=== PATIENT | female | born 1985 | race American Indian/Alaskan Native ===

== ENCOUNTER 2019-06-14 02:25 | Emergency (ER) | payer MEDICAID ==
[2019-06-14] MEDS ORDERED: FLEXERIL PO ONE (02:55)
[2019-06-14] MEDS ORDERED: IBUPROFEN PO ONE (02:55)
[2019-06-14] MEDS ORDERED: BOOSTRIX IM ONE (02:55)
[2019-06-14] MEDS ORDERED: TYLENOL PO ONE (02:55)
[2019-06-14] MEDS ORDERED: XYLOCAINE 1% MPF 5 mL INFILTRATI ONE (02:55)
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
[2019-06-14 04:50] VITALS: BP 119/82
== END 2019-06-14 04:50 | disposition home or self-care (01) ==
LOC: ED 02:25
DX: S01.81XA Laceration without foreign body of other part of head, initial encounter (principal); S51.812A Laceration without foreign body of left forearm, initial encounter; S61.210A Laceration without foreign body of right index finger without damage to nail, initial encounter; F17.200 Nicotine dependence, unspecified, uncomplicated; F12.10 Cannabis abuse, uncomplicated; Y04.0XXA Assault by unarmed brawl or fight, initial encounter; Y93.89 Activity, other specified; Y92.009 Unspecified place in unspecified non-institutional (private) residence as the place of occurrence of the external cause; Y99.8 Other external cause status
CPT/HCPCS: 90471; 90715

== ENCOUNTER 2020-06-11 14:20 | Inpatient (IN) | payer OTHER, SELFPAY ==
[2020-06-11 15:53] LABS: Hematocrit 33.7 % (30.3-42.9); Hemoglobin 11.5 gm/dl (10.1-14.3); Mean Corpuscular HGB Conc 34 % (30-34); Mean Corpuscular Volume 89 fl (79-97); Platelet Count 363 K/mm3 (140-440); Red Blood Count 3.81 M/mm3 (3.65-5.03); Red Cell Distribution Width 14.5 % (13.2-15.2)
[2020-06-11 16:08] LABS: Alanine Aminotransferase 28 units/L (7-56); Albumin 3.8 g/dL (3.9-5); BUN/Creatinine Ratio 6; Blood Urea Nitrogen 5 mg/dL (7-17); Calcium 9.3 mg/dL (8.4-10.2); Hemolysis Index 2
[2020-06-11 17:11] LABS: Basophils % (Manual) 0 % (0.0-1.8); Eosinophils % (Manual) 0 % (0.0-4.3); RBC Morphology Normal; Total Cells Counted 100
[2020-06-11] MEDS ORDERED: MORPHINE 4 MG/1 ML INJ IV ONE (20:00)
[2020-06-11] MEDS ORDERED: SODIUM CHLORIDE 0.9% 1000 ML 1,000 ML IV ONE (20:00)
[2020-06-11] MEDS ORDERED: ONDANSETRON 4 MG/2 ML INJ IV ONE (20:00)
[2020-06-11 20:42] LABS: Bacteria,Urine 1+ /HPF (Negative); Bilirubin,Urine NEG (Negative); Blood,Urine LG (Negative); Color,Urine Yellow (Yellow); Mucus,Urine 2+ /HPF; Urobilinogen,Urine < 2.0 mg/dL (<2.0)
[2020-06-11] MEDS ORDERED: cefTRIAXone/NS 1 GM/50 ML 1 GM/50 ML BAG IV ONE (21:23)
--- NOTE | 2020-06-11 22:29 | Cat Scan Report ---
CT ABDOMEN AND PELVIS WITH CONTRAST INDICATION / CLINICAL INFORMATION: Abdominal pain. TECHNIQUE: Axial CT images were obtained through the abdomen and pelvis following the administration of intraven ous contrast. All CT scans at this location are performed using CT dose reduction for ALARA by means of automated exposure control. COMPARISON: None available. FINDINGS: LOWER CHEST: No significant abnormality. LIVER: No significant abnormality. GALLBLADDER: No significant abnormality. PANCREAS: No significant abnormality. SPLEEN: No significant abnormality. ADRENALS: No significant abnormality. KIDNEYS / URETERS: No significant abnormality. URINARY BLADDER: No significant abnormality. REPRODUCTIVE ORGANS: Large tubular fluid-filled structures are seen on either side of the uterus. Fin dings are concerning for tubo-ovarian abscess or possible cystic ovarian lesions. STOMACH / SMALL BOWEL: No significant abnormality. COLON: Scattered colonic diverticulosis with questionable mild inflammatory change involving the prox imal sigmoid colon. APPENDIX: No significant abnormality. PERITONEUM: No free fluid. No free air. No fluid collection. LYMPH NODES: Multiple prominent para-aortic lymph nodes are seen, the largest on the left measuring 9 mm in short axis and 1.3 cm in short axis on the right. AORTA / ARTERIES: No significant abnormality. IVC / VEINS: No significant abnormality. SKELETAL SYSTEM: No significant abnormality. ADDITIONAL FINDINGS: None. IMPRESSION: 1. Large tubular fluid-filled structures within the pelvis are concerning for either tubo-ovarian abs cess or cystic ovarian lesions. Pelvic ultrasound is recommended for further evaluation. Gynecologic evaluation is recommended. 2. Colonic diverticulosis with questionable mild inflammatory change involving the proximal sigmoid c olon. No perforation or abscess formation. 3. Prominent para-aortic lymph nodes. Signer Name: Walt Alvarez MD Signed: 06/11/2020 10:24 PM Workstation Name: [id number]
[2020-06-11] MEDS ORDERED: POTASSIUM CHLORIDE ER 20 MEQ TAB PO ONE (22:40)
[2020-06-11] MEDS ORDERED: AZITHROMYCIN 250 MG TAB PO ONE (22:40)
--- NOTE | 2020-06-12 00:03 | Ultrasound Report ---
US pelvic complete, US OB transvaginal INDICATION / CLINICAL INFORMATION: Pelvic pain: r/o Tubovarian abscess vs ovarian cys. COMPARISON: CT earlier the same day. FINDINGS: Transabdominal and transvaginal imaging was performed. Uterus measures 9.7 x 4.3 x 4.3 cm. The endometrial echo complex measures 6 mm. There is no intrauter ine gestational sac. No uterine lesions are seen. There are multiple complex cystic/tubular structures which appear to involve both adnexa. No flow is seen within these. Flow is seen to both ovaries. IMPRESSION: 1. No sonographic evidence of intrauterine . 2. No sonographic evidence of ovarian torsion. 3. Complex cystic/tubular structures involving both adnexa. This is concerning for bilateral hydrosal pinx. I cannot exclude infection. Tubo-ovarian abscesses should be considered. Signer Name: Kike Koenig MD Signed: 06/11/2020 11:59 PM Workstation Name: [id number]
[2020-06-12] MEDS ORDERED: levoFLOXacin 500 MG TAB PO ONE (00:34)
[2020-06-12] MEDS ORDERED: MORPHINE 4 MG/1 ML INJ IV ONE (00:34)
[2020-06-12] MEDS ORDERED: metroNIDAZOLE/NS 500 MG/100 ML 500 MG/100 ML BAG IV ONE (00:34)
[2020-06-12] MEDS ORDERED: ONDANSETRON 4 MG/2 ML INJ IV ONE (00:34)
[2020-06-12] MEDS ORDERED: ACETAMINOPHEN 500 MG TAB PO ONE (02:55)
[2020-06-12] MEDS ORDERED: SODIUM CHLORIDE 0.9% 1000 ML 1,000 ML IV ONE (02:55)
--- NOTE | 2020-06-12 03:05 | Emergency Department Report ---
ED Abdominal Pain HPI - General Chief Complaint: Abdominal Pain Stated Complaint: WEAK/NOT EATING Source: patient Mode of arrival: Ambulatory Limitations: No Limitations - History of Present Illness Initial Comments: Patient is a A0 35-year-old -[place] female with no past medical history presents to the ED with complaint of acute onset persistent severe diffuse low abdominal pain with nausea and vomiting for the last 5 days. Patient also complains of generalized weakness and lack of appetite as well as subjective fever and chills and low back pain. Patient states that she just returned from a trip in [place] where she had gone to celebrate her birthday about 7 days ago. Patient also states that she was diagnosed with chlamydia about 2 months ago and got treated for the same and has not had any other symptoms since that treatment. Patient also states that no one else at home is had similar symptoms. Patient denies dizziness, syncope, chest pain, shortness of breath, cough, change in vision, diarrhea, dysuria, vaginal discharge, traumatic injury, headache or heavy lifting. MD Complaint: abdominal pain, other (nausea, vomiting, generalized weakness; lack of appetite) -: Sudden, days(s) (5) Location: suprapubic Radiation: suprapubic, back (lower) Migration to: no migration Severity scale (0 -10): 8 Quality: cramping, aching, sharp Consistency: constant Improves With: nothing Worsens With: vomiting, movement Associated Symptoms: denies other symptoms, nausea, vomiting, anorexia. denies: diarrhea, fever, chills, constipation, dysuria, hematemesis, hematochezia, me lona, syncope, other - Related Data LMP Date: 06/10/20 Previous Rx's Medication Instructions Recorded Last Taken Type Acetaminophen/Codeine [Tylenol 1 tab PO Q6H PRN #12 tab 06/14/19 Unknown Rx /Codeine # 3 tab] Ibuprofen [Motrin] 800 mg PO Q8HR PRN #20 tablet 06/14/19 Unknown Rx cephALEXin [Keflex] 500 mg PO Q8HR #30 cap 06/14/19 Unknown Rx Allergies Allergy/AdvReac Type Severity Reaction Status Date / Time No Known Allergies Allergy Verified 06/14/19 03:14 ED Review of Systems ROS: Stated complaint: WEAK/NOT EATING Other details as noted in HPI Constitutional: chills, fever, malaise, weakness Eyes: denies: eye pain, eye discharge, vision change ENT: denies: ear pain, throat pain Respiratory: denies: cough, shortness of breath, wheezing Cardiovascular: denies: chest pain, palpitations Endocrine: no symptoms reported Gastrointestinal: abdominal pain (Suprapubic pain), nausea, vomiting. denies: diarrhea Genitourinary: denies: urgency, dysuria, discharge Musculoskeletal: back pain (Low back pain), arthralgia, myalgia. denies: joint swelling Skin: denies: rash, lesions Neurological: denies: headache, weakness, paresthesias Psychiatric: denies: anxiety, depression Hematological/Lymphatic: denies: easy bleeding, easy bruising ED Past Medical Hx - Past Medical History Previous Medical History?: No - Surgical History Past Surgical History?: Yes Additional Surgical History: C-Sec - Social History Smoking Status: Current Every Day Smoker Substance Use Type: Alcohol, Marijuana - Medications Home Medications: Home Medications Medication Instructions Recorded Confirmed Last Taken Type Acetaminophen/Codeine [Tylenol 1 tab PO Q6H PRN #12 tab 06/14/19 Unknown Rx /Codeine # 3 tab] Ibuprofen [Motrin] 800 mg PO Q8HR PRN #20 tablet 06/14/19 Unknown Rx cephALEXin [Keflex] 500 mg PO Q8HR #30 cap 06/14/19 Unknown Rx ED Physical Exam - General Limitations: No Limitations General appearance: alert, in no apparent distress - Head Head exam: Present: atraumatic, normocephalic, normal inspection - Eye Eye exam: Present: normal appearance, PERRL, EOMI Pupils: Present: normal accommodation - ENT ENT exam: Present: normal exam, normal orophraynx, mucous membranes moist, TM's normal bilaterally, normal external ear exam - Neck Neck exam: Present: normal inspection, full ROM - Respiratory Respiratory exam: Present: normal lung sounds bilaterally. Absent: respiratory distress, wheezes, rhonchi, stridor, chest wall tenderness, accessory muscle use, decreased breath sounds - Cardiovascular Cardiovascular Exam: Present: normal rhythm, tachycardia, normal heart sounds. Absent: systolic murmur, diastolic murmur, rubs, gallop - GI/Abdominal GI/Abdominal exam: Present: soft, tenderness (Palpable diffuse rebound lower abdominal tenderness with guarding ), guarding, rebound, normal bowel sounds. Absent: rigid, hyperactive bowel sounds, hypoactive bowel sounds, mass, pulsatile mass, hernia - External exam: Present: normal external exam, bleeding Speculum exam: Present: vaginal bleeding Bi-manual exam: Present: cervical motion tendernes, adnexal tenderness (Bilateral), uterine tenderness, other (Pelvic exam performed in the presence of female ER electronic development technician Kristine Elvira.) - Extremities Exam Extremities exam: Present: normal inspection, full ROM, normal capillary refill. Absent: pedal edema, joint swelling - Back Exam Back exam: Present: normal inspection, full ROM, tenderness (Palpable lumbosacral paraspinal musculoskeletal tenderness), muscle spasm, paraspinal tenderness - Neurological Exam Neurological exam: Present: alert, oriented X3, CN II-XII intact, normal gait, reflexes normal - Psychiatric Psychiatric exam: Present: normal affect, normal mood - Skin Skin exam: Present: warm, dry, intact, normal color. Absent: rash ED Course Vital Signs 06/11/20 06/12/20 15:28 03:49 Temperature 100.1 F H 99.2 F Pulse Rate 120 H 109 H Respiratory 18 18 Rate Blood Pressure 114/73 Blood Pressure 119/76 [Left] O2 Sat by Pulse 100 98 Oximetry - Reevaluation(s) Reevaluation #1: 06/12/20 03:04 I paged and discussed the patient's case with the CAREER GUIDANCE COUNSELOR physician bloom conveyor operator Dr. Lilliam Mcwilliams who admit the patient to the hospital. Dr. Lee to come to the ED to evaluate the patient in the ED room 35. ED Medical Decision Making - Lab Data Result diagrams: 06/11/20 15:34 06/11/20 15:34 - Radiology Data Radiology results: report reviewed, image reviewed Findings [facility] [address] [place] [address] Ultrasound Report Signed Patient: FANNY MCDONNELL MR#: [id number] : 1985 Acct:[id number] Age/Sex: 35 / F ADM Date: 06/11/20 Loc: ED Attending Dr: Ordering Physician: DELON BERG Date of Service: 06/11/20 Procedure(s): US OB transvaginal Accession Number(s): [id number] cc: DELON BERG US pelvic complete, US OB transvaginal INDICATION / CLINICAL INFORMATION: Pelvic pain: r/o Tubovarian abscess vs ovarian cys. COMPARISON: CT earlier the same day. FINDINGS: Transabdominal and transvaginal imaging was performed. Uterus measures 9.7 x 4.3 x 4.3 cm. The endometrial echo complex measures 6 mm. There is no intrauterine gestational sac. No uterine lesions are seen. There are multiple complex cystic/tubular structures which appear to involve both adnexa. No flow is seen within these. Flow is seen to both ovaries. IMPRESSION: 1. No sonographic evidence of intrauterine . 2. No sonographic evidence of ovarian torsion. 3. Complex cystic/tubular structures involving both adnexa. This is concerning for bilateral hydrosalpinx. I cannot exclude infection. Tubo-ovarian abscesses should be considered. Signer Name: Kike Koenig MD Signed: 06/11/2020 11:59 PM Workstation Name: [id number] Transcribed By: QUENTIN Dictated By: Kike Koenig MD Electronically Authenticated By: Kike Koenig MD Signed Date/Time: 06/11/202358 DD/ 54 TD/TT: Findings [facility] [address] [place] [address] Ultrasound Report Signed Patient: FANNY MCDONNELL MR#: [id number] : 1985 Acct:[id number] Age/Sex: 35 / F ADM Date: 06/11/20 Loc: ED Attending Dr: Ordering Physician: DELON BERG Date of Service: 06/11/20 Procedure(s): US pelvic complete Accession Number(s): [id number] cc: DELON BERG US pelvic complete, US OB transvaginal INDICATION / CLINICAL INFORMATION: Pelvic pain: r/o Tubovarian abscess vs ovarian cys. COMPARISON: CT earlier the same day. FINDINGS: Transabdominal and transvaginal imaging was performed. Uterus measures 9.7 x 4.3 x 4.3 cm. The endometrial echo complex measures 6 mm. There is no intrauterine gestational sac. No uterine lesions are seen. There are multiple complex cystic/tubular structures which appear to involve bot h adnexa. No flow is seen within these. Flow is seen to both ovaries. IMPRESSION: 1. No sonographic evidence of intrauterine . 2. No sonographic evidence of ovarian torsion. 3. Complex cystic/tubular structures involving both adnexa. This is concerning for bilateral hydrosalpinx. I cannot exclude infection. Tubo-ovarian abscesses should be considered. Signer Name: Kike Koenig MD Signed: 06/11/2020 11:59 PM Workstation Name: [id number] Transcribed By: QUENTIN Dictated By: Kike Koenig MD Electronically Authenticated By: Kike Koenig MD Signed Date/Time: 06/11/202358 DD/ 54 TD/TT: ------- Findings [facility] [address] [place] [address] Cat Scan Report Signed Patient: FANNY MCDONNELL MR#: [id number] : 1985 Acct:[id number] Age/Sex: 35 / F ADM Date: 06/11/20 Loc: ED Attending Dr: Ordering Physician: DELON BERG Date of Service: 06/11/20 Procedure(s): CT abdomen pelvis w con Accession Number(s): [id number] cc: DELON BERG CT ABDOMEN AND PELVIS WITH CONTRAST INDICATION / CLINICAL INFORMATION: Abdominal pain. TECHNIQUE: Axial CT images were obtained through the abdomen and pelvis following the administration of intravenous contrast. All CT scans at this location are performed using CT dose reduction for ALARA by means of automated exposure control. COMPARISON: None available. FINDINGS: LOWER CHEST: No significant abnormality. LIVER: No significant abnormality. GALLBLADDER: No significant abnormality. PANCREAS: No significant abnormality. SPLEEN: No significant abnormality. ADRENALS: No significant abnormality. KIDNEYS / URETERS: No significant abnormality. URINARY BLADDER: No significant abnormality. REPRODUCTIVE ORGANS: Large tubular fluid-filled structures are seen on either side of the uterus. Findings are concerning for tubo-ovarian abscess or possible cystic ovarian lesions. STOMACH / SMALL BOWEL: No significant abnormality. COLON: Scattered colonic diverticulosis with questionable mild inflammatory change involving the proximal sigmoid colon. APPENDIX: No significant abnormality. PERITONEUM: No free fluid. No free air. No fluid collection. LYMPH NODES: Multiple prominent para-aortic lymph nodes are seen, the largest on the left measuring 9 mm in short axis and 1.3 cm in short axis on the right. AORTA / ARTERIES: No significant abnormality. IVC / VEINS: No significant abnormality. SKELETAL SYSTEM: No significant abnormality. ADDITIONAL FINDINGS: None. IMPRESSION: 1. Large tubular fluid-filled structures within the pelvis are concerning for either tubo-ovarian abscess or cystic ovarian lesions. Pelvic ultrasound is recommended for further evaluation. Gynecologic evaluation is recommended. 2. Colonic diverticulosis with questionable mild inflammatory change involving the proximal sigmoid colon. No perforation or abscess formation. 3. Prominent para-aortic lymph nodes. Signer Name: Man Alvarez MD Signed: 06/11/2020 10:24 PM Workstation Name: [id number] Transcribed By: SS Dictated By: MAN ALVAREZ Electronically Authenticated By: MAN ALVARZE Signed Date/Time: 06/11/202223 DD/ 15 TD/TT: - Medical Decision Making This is a A0 35-year-old -[place] female with no past medical history presents to the ED with complaint of acute onset persistent severe diffuse low abdominal pain with nausea and vomiting for the last 5 days. Patient also complains of generalized weakness and lack of appetite as well as subjective fever and chills and low back pain. Patient states that she just returned from a trip in [place] where she had gone to celebrate her birthday about 7 days ago. Patient also states that she was diagnosed with chlamydia about 2 months ago and got treated for the same and has not had any other symptoms since that treatment. Patient also states that no one else at home is had similar symptoms. In the ED, patient is alert and oriented x3 and is not in distress but appears to be in significant pain, is febrile and tachycardic in triage. Lab test results were reviewed and showed acute leukocytosis of 21,900, mild hyponatremia 135 mmol/L and mild hypokalemia of 3.2 mmol/L, and urinalysis shows urinary tract infection. Patient was treated for pain in the ED and also treated for nausea and vomiting as well as fever. Abdomen pelvis CT scan with contrast showed a large tubular fluid-filled structures within the pelvis are concerning for either tubo-ovarian abscess or cystic ovarian lesions. Pelvic ultrasound is recommended for further evaluation. Gynecologic evaluation is recommended. It also showed colonic diverticulosis with questionable mild inflammatory change involving the proximal sigmoid colon. No perforation or abscess formation; and also a prominent para-aortic lymph nodes. Transvaginal ultrasound showed no sonographic evidence of intrauterine or evidence of ovarian torsion. It however showed a complex cystic/tubular structures involving both adnexa. This is concerning for bilateral hydrosalpinx. I cannot exclude infection. Tubo-ovarian abscesses should be considered. Patient was treated with antibiotics in the ED including Flagyl, Rocephin and Levaquin. On reevaluation, patient pain is well controlled medication. I therefore paged and discussed the patient's case with the CAREER GUIDANCE COUNSELOR physician bloom conveyor operator Dr. Donna Mcwilliams who agreed with the plan of care to admit the patient to the hospital. Dr. Mcwilliams also came to the ED and evaluated the patient and admitted the patient to the [facility] floor. - Differential Diagnosis PID; diverticulitis; appendicitis; ovarian cyst; uterine fibroids; UTI; Critical Care Time: Yes Critical care time in (mins) excluding proc time.: 45 Critical care attestation.: If time is entered above; I have spent that time in minutes in the direct care of this critically ill patient, excluding procedure time. ED Disposition Clinical Impression: Acute pelvic inflammatory disease (PID), Diverticulitis large intestine w/o perforation or abscess w/o bleeding, Nausea and vomiting in adult, Fever and chills, Acute urinary tract infection, Acute bilateral lower abdominal pain Disposition: -09 OP ADMIT IP TO THIS HOSP Is pt being admited?: Yes Does the pt Need Aspirin: No Condition: Stable Time of Disposition: 03:11
--- NOTE | 2020-06-12 06:02 | History and Physical Report ---
History of Present Illness Date of examination: 06/12/20 Date of admission: 06/12/20 05:22 History of present illness: This is a 35-year-old female 1 para 1 who presented with a one-week history of pelvic pain that started on June 07, 2020. Patient states pain was somewhat relieved with Gas-X and an enema however she developed nausea and vomiting yesterday with weakness and fatigue and anorexia. LMP 05/22/2020 however she states she then bled again 06/07/2020 that coincided with the beginning of her pain. She states she had sex approximately 2 weeks ago. Patient gives a history of positive chlamydia in February 2020 for she and her partner were treated. She did not get a test of cure. ED evaluation revealed bilateral adnexal complex cystic structures possibly consistent with tubo- ovarian abscesses. Patient has white count 21,000 a low-grade fever of 100.1 and slight tachycardia she is admitted now for IV antibiotics and an evaluation by interventional radiology with for possible drainage. Past History Past Medical History: No medical history Past Surgical History: Other (oral) Medications and Allergies Allergies Allergy/AdvReac Type Severity Reaction Status Date / Time No Known Allergies Allergy Verified 06/14/19 03:14 Home Medications Medication Instructions Recorded Confirmed Last Taken Type Acetaminophen/Codeine [Tylenol 1 tab PO Q6H PRN #12 tab 06/14/19 Unknown Rx /Codeine # 3 tab] Ibuprofen [Motrin] 800 mg PO Q8HR PRN #20 tablet 06/14/19 Unknown Rx cephALEXin [Keflex] 500 mg PO Q8HR #30 cap 06/14/19 Unknown Rx Exam - Constitutional Vitals: Temp Pulse Resp BP Pulse Ox 99.2 F 109 H 18 119/76 98 06/12/20 03:49 06/12/20 03:49 06/12/20 03:49 06/12/20 03:49 06/12/20 03:49 Results - Labs CBC & Chem 7: 06/11/20 15:34 06/11/20 15:34 Labs: Abnormal lab results 06/11/20 06/11/20 06/11/20 Range/Units 15:34 15:34 Unknown WBC 21.9 H (4.5-11.0) K/mm3 Seg Neuts % (Manual) 78.0 H (40.0-70.0) % Lymphocytes % (Manual) 11.0 L (13.4-35.0) % Monocytes % (Manual) 11.0 H (0.0-7.3) % Seg Neutrophils # Man 17.1 H (1.8-7.7) K/mm3 Monocytes # (Manual) 2.4 H (0.0-0.8) K/mm3 Sodium 135 L (137-145) mmol/L Potassium 3.2 L (3.6-5.0) mmol/L Chloride 94.5 L (98-107) mmol/L BUN 5 L (7-17) mg/dL Glucose 110 H (65-100) mg/dL Albumin 3.8 L (3.9-5) g/dL Urine WBC (Auto) 16.0 H (0.0-6.0) /HPF
--- NOTE | 2020-06-12 06:07 | History and Physical Report ---
History of Present Illness Date of examination: 06/12/20 Date of admission: 06/12/20 05:22 History of present illness: This is a 35-year-old female 1 para 1 who presented with a one-week history of pelvic pain that started on June 07, 2020. Patient states pain was somewhat relieved with Gas-X and an enema however she developed nausea and vomiting yesterday with weakness and fatigue and anorexia. LMP 05/22/2020 however she states she then bled again 06/07/2020 that coincided with the beginning of her pain. She states she had sex approximately 2 weeks ago. Patient gives a history of positive chlamydia in February 2020 for she and her partner were treated. She did not get a test of cure. ED evaluation revealed bilateral adnexal complex cystic structures possibly consistent with tubo- ovarian abscesses. Patient has white count 21,000 a low-grade fever of 100.1 and slight tachycardia she is admitted now for IV antibiotics and an evaluation by interventional radiology with for possible drainage Past History Past Medical History: no pertinent history Past Surgical History: section, other (oral) CONFERENCE CENTER COORDINATOR History: chlamydia Social history: single, smoking, full code. denies: alcohol abuse, IV drug use Medications and Allergies Allergies Allergy/AdvReac Type Severity Reaction Status Date / Time No Known Allergies Allergy Verified 06/14/19 03:14 Home Medications Medication Instructions Recorded Confirmed Last Taken Type Acetaminophen/Codeine [Tylenol 1 tab PO Q6H PRN #12 tab 06/14/19 Unknown Rx /Codeine # 3 tab] Ibuprofen [Motrin] 800 mg PO Q8HR PRN #20 tablet 06/14/19 Unknown Rx cephALEXin [Keflex] 500 mg PO Q8HR #30 cap 06/14/19 Unknown Rx Review of Systems All systems: negative Gastrointestinal: abdominal pain Genitourinary: pelvic pain - Vital Signs Vital signs: Vital Signs Temp Pulse Resp BP Pulse Ox 100.1 F H 120 H 18 114/73 100 06/11/20 15:28 06/11/20 15:28 06/11/20 15:28 06/11/20 15:28 06/11/20 15:28 Temp Pulse Resp BP Pulse Ox 99.2 F 109 H 18 119/76 98 06/12/20 03:49 06/12/20 03:49 06/12/20 03:49 06/12/20 03:49 06/12/20 03:49 - Physical Exam Breasts: Positive: deferred Lungs: Positive: Normal air movement Abdomen: Positive: normal appearance, soft, distention, tenderness Genitourinary (Female): Positive: other (Patient refused pelvic exam since she previously an evaluation by the ED provider) Extremities: Positive: normal. Negative: tenderness Results Result Diagrams: 06/11/20 15:34 06/11/20 15:34 Abnormal lab results 06/11/20 06/11/20 06/11/20 Range/Units 15:34 15:34 Unknown WBC 21.9 H (4.5-11.0) K/mm3 Seg Neuts % (Manual) 78.0 H (40.0-70.0) % Lymphocytes % (Manual) 11.0 L (13.4-35.0) % Monocytes % (Manual) 11.0 H (0.0-7.3) % Seg Neutrophils # Man 17.1 H (1.8-7.7) K/mm3 Monocytes # (Manual) 2.4 H (0.0-0.8) K/mm3 Sodium 135 L (137-145) mmol/L Potassium 3.2 L (3.6-5.0) mmol/L Chloride 94.5 L (98-107) mmol/L BUN 5 L (7-17) mg/dL Glucose 110 H (65-100) mg/dL Albumin 3.8 L (3.9-5) g/dL Urine WBC (Auto) 16.0 H (0.0-6.0) /HPF All other labs normal. Ultrasound: report reviewed, image reviewed CT scan - abdomen: report reviewed CT scan - pelvis: report reviewed Assessment and Plan - Patient Problems (1) Acute pelvic inflammatory disease (PID) Current Visit: Yes Status: Acute Plan to address problem: Patient has white count 21,000 a low-grade fever of 100.1 and slight tachycardia she is admitted now for IV antibiotics and an evaluation by interventional radiology with for possible drainage (2) Pelvic mass Current Visit: Yes Status: Acute Plan to address problem: Probable tubo-ovarian abscess. (3) Diverticulosis Current Visit: Yes Status: Chronic (4) Acute bilateral lower abdominal pain Current Visit: Yes Status: Acute (5) Acute urinary tract infection Current Visit: Yes Status: Acute (6) Fever and chills Current Visit: Yes Status: Acute (7) Nausea and vomiting in adult Current Visit: Yes Status: Acute (8) Smoker Current Visit: Yes Status: Chronic
[2020-06-12] MEDS: LACTATED RINGERS 1,000 ML IV SCH (10:20)
[2020-06-12] MEDS: metroNIDAZOLE/NS 500 MG/100 ML 500 MG/100 ML BAG IV SCH ×2 (11:15→18:39)
[2020-06-12] MEDS: cefTRIAXone/NS 2 GM/100 ML 2 GM/100 ML BAG IV SCH (12:05)
[2020-06-12] MEDS ORDERED: KETOROLAC 30 MG/1 ML INJ IV ONE (12:30)
[2020-06-12] MEDS: DOXYCYCLINE HYCLATE 100 MG in SODIUM CHLORIDE 0.9% 250ML 250 ML IV SCH ×2 (13:09→23:01)
--- NOTE | 2020-06-12 13:46 | Event Note ---
Date: 06/12/20 SUBJECTIVE: Patient states pain has improved still complains some lower abdominal pain. Patient denies any nausea vomiting's complaint hunger has regular tray present OBJECTIVE: Patient vital signs stable afebrile Abdomen is soft mildly tender and no rebound ASSESSMENT: Tubo-ovarian abscess receiving IV antibiotics -Dr. Caceres reviewed the patient's films and believe she is a candidate for drainage but states there is no staff available to perform the procedure over the weekend. Discussed this finding with patient. Discussed the role of IV antibiotic treatment for her abscess and duration needed. Patient desires to continue IV antibiotics again expressed her desire not to have surgery on this is unavoidable. PLAN: 1. We will continue IV antibiotics will give analgesia. With hopeful drainage by interventional radiologist on Sunday. .
[2020-06-12 14:37] LABS: Hematocrit 29.1 % (30.3-42.9); Hemoglobin 9.5 gm/dl (10.1-14.3); Mean Corpuscular HGB Conc 33 % (30-34); Mean Corpuscular Volume 90 fl (79-97); Platelet Count 321 K/mm3 (140-440); Red Blood Count 3.24 M/mm3 (3.65-5.03); Red Cell Distribution Width 14.1 % (13.2-15.2)
[2020-06-12] MEDS: KETOROLAC 30 MG/1 ML INJ IV PRN ×2 (15:14→21:13)
[2020-06-12 16:12] LABS: Basophils % (Manual) 0 % (0.0-1.8); Eosinophils % (Manual) 0 % (0.0-4.3); RBC Morphology Normal; Total Cells Counted 100
[2020-06-12 18:27] LABS: Blood Urea Nitrogen 6 mg/dL (7-17); Calcium 8.6 mg/dL (8.4-10.2); Hemolysis Index 0
[2020-06-12 18:28] LABS: BUN/Creatinine Ratio 9
[2020-06-12] MEDS: ALUM-MAG HYDROXIDE-SIMETHICONE 200-200-20MG/5ML ORAL LIQD 30 ML PO PRN (23:00)
[2020-06-13] MEDS: metroNIDAZOLE/NS 500 MG/100 ML 500 MG/100 ML BAG IV SCH ×3 (04:07→17:33)
[2020-06-13] MEDS: KETOROLAC 30 MG/1 ML INJ IV PRN ×2 (04:08→09:36)
[2020-06-13] MEDS: cefTRIAXone/NS 2 GM/100 ML 2 GM/100 ML BAG IV SCH (09:39)
--- NOTE | 2020-06-13 10:45 | Consultation ---
History of Present Illness - Reason for Consult Consult date: 06/13/20 Tubo-ovarian abscess - History of Present Illness Patient with a history of 5 days of increasing abdominal pain ultimately developing nausea and vomiting who presented to the ER. She was found to have multiple fluid-filled cystic structures in the pelvis consistent with hydrosalpinx versus TOA. Patient has been on antibiotics since her arrival. Unable to perform drainage catheter placement over the weekend secondary to lack of CT techs. On examination, the patient is doing well, persistent lower abdominal pain. Past History Social history: single, smoking, full code. denies: alcohol abuse, IV drug use Medications and Allergies Allergies Allergy/AdvReac Type Severity Reaction Status Date / Time No Known Allergies Allergy Verified 06/14/19 03:14 Home Medications Medication Instructions Recorded Confirmed Last Taken Type Acetaminophen/Codeine [Tylenol 1 tab PO Q6H PRN #12 tab 06/14/19 Unknown Rx /Codeine # 3 tab] Ibuprofen [Motrin] 800 mg PO Q8HR PRN #20 tablet 06/14/19 Unknown Rx cephALEXin [Keflex] 500 mg PO Q8HR #30 cap 06/14/19 Unknown Rx Active Meds: Active Medications Al Hydrox/Mg Hydrox/Simethicone (Alum-Mag Hydrox-Simeth 512-798-98wv/5ml) 30 ml PO Q4H PRN PRN Reason: Indigestion Last Admin: 06/12/20 23:00 Dose: 30 ml Documented by: Lactated Ringer's (Lactated Ringers) 1,000 mls @ 42 mls/hr IV DIRECT DUONG Last Admin: 06/12/20 10:20 Dose: 42 mls/hr Documented by: Ceftriaxone Sodium (Rocephin/Ns 2 Gm/100 Ml) 2 gm in 100 mls @ 200 mls/hr IV Q24HR DUONG; Protocol Last Admin: 06/13/20 09:39 Dose: 200 mls/hr Documented by: Doxycycline Hyclate 100 mg/ (Sodium Chloride) 250 mls @ 250 mls/hr IV Q12H DUONG; Protocol Last Admin: 06/12/20 23:01 Dose: 250 mls/hr Documented by: Metronidazole (Flagyl 500 Mg/100 Ml) 500 mg in 100 mls @ 100 mls/hr IV Q8H DUONG; Protocol Last Admin: 06/13/20 04:07 Dose: 100 mls/hr Documented by: Ketorolac Tromethamine (Toradol) 30 mg IV Q6H PRN PRN Reason: Pain, Moderate (4-6) Stop: 06/17/20 13:46 Last Admin: 06/13/20 09:36 Dose: 30 mg Documented by: Review of Systems All systems: negative Exam - Constitutional Vitals: Temp Pulse Resp BP Pulse Ox 98.1 F 73 18 108/68 87 06/13/20 07:52 06/13/20 07:52 06/13/20 07:52 06/13/20 07:52 06/13/20 07:52 General appearance: Present: no acute distress - EENT Eyes: Present: EOM intact ENT: hearing intact - Neck Neck: Present: supple - Respiratory Respiratory effort: normal - Extremities Extremities: no ischemia - Rectal Rectal Exam: deferred - Psychiatric Psychiatric: appropriate mood/affect, cooperative Results - Labs CBC & Chem 7: 06/12/20 14:14 06/12/20 17:40 Labs: Abnormal lab results 06/12/20 06/12/20 Range/Units 14:14 17:40 WBC 21.6 H (4.5-11.0) K/mm3 RBC 3.24 L (3.65-5.03) M/mm3 Hgb 9.5 L (10.1-14.3) gm/dl Hct 29.1 L (30.3-42.9) % Seg Neuts % (Manual) 82.0 H (40.0-70.0) % Lymphocytes % (Manual) 8.0 L (13.4-35.0) % Monocytes % (Manual) 10.0 H (0.0-7.3) % Seg Neutrophils # Man 17.7 H (1.8-7.7) K/mm3 Monocytes # (Manual) 2.2 H (0.0-0.8) K/mm3 Potassium 3.5 L (3.6-5.0) mmol/L BUN 6 L (7-17) mg/dL Glucose 103 H (65-100) mg/dL - Imaging and Cardiology CT scan - abdomen: report reviewed, image reviewed CT scan - pelvis: report reviewed, image reviewed US - abdomen: report reviewed, image reviewed Assessment and Plan Plan for placement of drainage catheter with drainage of hydrosalpinx versus TOA Sunday morning.
[2020-06-13] MEDS: DOXYCYCLINE HYCLATE 100 MG in SODIUM CHLORIDE 0.9% 250ML 250 ML IV SCH (13:57)
[2020-06-13] MEDS ORDERED: ACETAMINOPHEN 325 MG TAB PO PRN (14:18)
--- NOTE | 2020-06-13 14:32 | Progress Note ---
Assessment and Plan - Patient Problems (1) Tubo-ovarian abscess Current Visit: Yes Status: Acute Plan to address problem: Appreciate Dr. Caceres's help. Please see his note for plan of care tomorrow. We will add oral analgesics. Patient continues to be afebrile. Hopeful discharge tomorrow if continue afebrile and with expected pain relief after d rainage of her abscess. Subjective Date of service: 06/13/20 Interval history: Patient says feels better still having pain. Patient denies any nausea vomiting Objective - Constitutional Vitals: Vital Signs - 12hr 06/13/20 06/13/20 05:13 07:52 Temperature 98.9 F 98.1 F Pulse Rate 86 73 Respiratory 20 18 Rate Blood Pressure 106/64 Blood Pressure 108/68 [Left] O2 Sat by Pulse 100 87 Oximetry General appearance: Present: no acute distress, well-nourished - Respiratory Respiratory effort: normal - Breasts Breasts: deferred - Cardiovascular Rhythm: regular Extremities: no ischemia - Gastrointestinal General gastrointestinal: Present: soft, tender (Mildly no rebound) Localized gastrointestinal: tender: suprapubic Rectal Exam: deferred - Genitourinary Female genitourinary: deferred - Integumentary Integumentary: clear, warm, dry - Neurologic Neurologic: moves all extremities - Psychiatric Psychiatric: appropriate mood/affect - Labs CBC & Chem 7: 06/12/20 14:14 06/12/20 17:40 Labs: Abnormal lab results 06/12/20 06/12/20 Range/Units 14:14 17:40 WBC 21.6 H (4.5-11.0) K/mm3 RBC 3.24 L (3.65-5.03) M/mm3 Hgb 9.5 L (10.1-14.3) gm/dl Hct 29.1 L (30.3-42.9) % Seg Neuts % (Manual) 82.0 H (40.0-70.0) % Lymphocytes % (Manual) 8.0 L (13.4-35.0) % Monocytes % (Manual) 10.0 H (0.0-7.3) % Seg Neutrophils # Man 17.7 H (1.8-7.7) K/mm3 Monocytes # (Manual) 2.2 H (0.0-0.8) K/mm3 Potassium 3.5 L (3.6-5.0) mmol/L BUN 6 L (7-17) mg/dL Glucose 103 H (65-100) mg/dL Medications & Allergies - Medications Allergies/Adverse Reactions: Allergies No Known Allergies Allergy (Verified 06/14/19 03:14) Home Medications: Home Medications Medication Instructions Recorded Confirmed Last Taken Type Acetaminophen/Codeine [Tylenol 1 tab PO Q6H PRN #12 tab 06/14/19 Unknown Rx /Codeine # 3 tab] Ibuprofen [Motrin] 800 mg PO Q8HR PRN #20 tablet 06/14/19 Unknown Rx cephALEXin [Keflex] 500 mg PO Q8HR #30 cap 06/14/19 Unknown Rx Active Medications: Generic Name Dose Route Start Last Admin Trade Name Freq PRN Reason Stop Dose Admin Acetaminophen 650 mg 06/13/20 14:18 Tylenol PO Q4H PRN Non Cardiac Pain or Temp>100.5 Acetaminophen/Codeine Phosphate 2 tab 06/13/20 14:18 Tylenol #3 PO Q6H PRN Pain, Moderate (4-6) Al Hydrox/Mg Hydrox/Simethicone 30 ml 06/12/20 22:00 06/12/20 23:00 Alum-Mag Hydrox-Simeth 385-191-58fn/5ml PO 30 ml Q4H PRN Administration Indigestion Lactated Ringer's 1,000 mls @ 42 mls/hr 06/12/20 07:00 06/12/20 10:20 Lactated Ringers IV 42 mls/hr DIRECT DUONG Administration Ceftriaxone Sodium 2 gm in 100 mls @ 200 mls/hr 06/12/20 11:00 06/13/20 09:39 Rocephin/Ns 2 Gm/100 Ml IV 200 mls/hr Q24HR DUONG Administration Protocol Doxycycline Hyclate 100 mg/ 250 mls @ 250 mls/hr 06/12/20 11:00 06/13/20 13:57 Sodium Chloride IV 250 mls/hr Q12H DUONG Administration Protocol Metronidazole 500 mg in 100 mls @ 100 mls/hr 06/12/20 11:00 06/13/20 12:24 Flagyl 500 Mg/100 Ml IV 100 mls/hr Q8H DUONG Administration Protocol Ketorolac Tromethamine 30 mg 06/12/20 13:47 06/13/20 09:36 Toradol IV 06/17/20 13:46 30 mg Q6H PRN Administration Pain, Moderate (4-6)
[2020-06-13] MEDS: ACETAMINOPHEN W/CODEINE 300-30 MG TAB PO PRN (14:44)
[2020-06-13] MEDS: LACTATED RINGERS 1,000 ML IV SCH (17:40)
[2020-06-13] MEDS: ALUM-MAG HYDROXIDE-SIMETHICONE 200-200-20MG/5ML ORAL LIQD 30 ML PO PRN (20:24)
[2020-06-14] MEDS: metroNIDAZOLE/NS 500 MG/100 ML 500 MG/100 ML BAG IV SCH ×2 (00:11→15:42)
[2020-06-14] MEDS: ACETAMINOPHEN W/CODEINE 300-30 MG TAB PO PRN ×2 (00:26→15:43)
[2020-06-14] MEDS: DOXYCYCLINE HYCLATE 100 MG in SODIUM CHLORIDE 0.9% 250ML 250 ML IV SCH ×2 (01:25→23:10)
[2020-06-14] MEDS ORDERED: fentaNYL 100 MCG/2 ML INJ IV SCH ×2 (09:00→13:00)
[2020-06-14] MEDS ORDERED: MIDAZOLAM 5 MG/5 ML INJ MDV IV SCH (09:00)
--- NOTE | 2020-06-14 09:24 | Event Note ---
Date: 06/14/20 Chart reviewed. Pt now awaiting drainage of suspected bilateral TOAs by IR. Will evaluate pt after procedure and plan for d/c home if remains stable and afebrile.
[2020-06-14] MEDS: cefTRIAXone/NS 2 GM/100 ML 2 GM/100 ML BAG IV SCH ×2 (09:42→14:20)
[2020-06-14] MEDS ORDERED: fentaNYL 100 MCG/2 ML INJ ONE ×2 (11:13→12:37)
[2020-06-14] MEDS ORDERED: MIDAZOLAM 5 MG/5 ML INJ MDV IV ONE (11:13)
--- NOTE | 2020-06-14 14:46 | Progress Note ---
Assessment and Plan - Patient Problems (1) Acute pelvic inflammatory disease (PID) Current Visit: Yes Status: Acute (2) Tubo-ovarian abscess Current Visit: Yes Status: Acute Plan to address problem: -cont antibx -s/p successful drainage with drain placement. please see Dr. Alvarez's noted for details -desires d/c home. see hpi -cont' antibx for now -d/c home when cleared by IR . Recommendation was to remain in house at least until cx are back. Subjective - Subjective Date of service: 06/14/20 Principal diagnosis: POD#0 s/p CT drainage of TOAs with drain left insitu Interval history: I d/w pt recommendations of Dr. Alvarez to remain in house until cx are back or at least another 24 hrs. Pt very upset using profanity stating she wants to leave, the food is not good, the room is hot at night(though she admits it is not hot at this time), she has had only one meal per day since admission and the feels as if she is in shelter. I addressed the profanity and asked that she not use with provider, she then stated that it was not directed towards me but towards her mother that was on the phone via face time. I d/w pt that as per IR her procedure was more difficult than anticipated and showed her the pus that was still draining in the drain. States she does not have any pain at this time and just wants to go home. I stressed that the plan of care is to remain in house at this time and that if she does leave she will need to do AMA. Pt still very upset and states she does not want to stay in the this "[facility] any more." Again I tried to addressed the concerns that Dr. Alvarez has regarding remaining in house for iv antibx and difficulty in placement of the drain. I did speak with Dr. Alvarez after leaving the pt bedside and he states he will also attempt to speak with pt regarding continued hospital stay. I prior to leaving advised pt that I would try to get her an egg crate matress for her discomfort as well as a family member is able to bring her food if she desires them to do so as she is now on a regular diet. Provider was at bedside about 15 minutes. When asked if there were any questions for the provider or how I could make her stay more comfortable , pt responded she is not going to stay and did not address the questions. Again I stressed the high rate of among AA women in the state of [place] and we are just doing our part to not allow her to be one of the statistics. Pt did not respond. Patient reports: appetite normal, voiding normally, pain well controlled, ambulating normally, no nauseated Objective - Vital Signs Latest vital signs: Vital Signs Temp Pulse Pulse Pulse Resp Resp Resp 06/14/20 14:00 99.3 F 98 H 20 06/14/20 13:19 98 H 25 H 06/14/20 13:08 99 H 27 H 06/14/20 13:03 104 H 22 06/14/20 12:58 113 H 20 06/14/20 12:52 108 H 28 H 06/14/20 12:48 101 H 24 06/14/20 12:42 120 H 18 06/14/20 12:34 117 H 16 06/14/20 12:27 101 H 24 06/14/20 12:23 107 H 24 06/14/20 12:18 114 H 18 06/14/20 12:12 97 H 28 H 06/14/20 12:01 87 20 06/14/20 07:36 99.2 F 89 20 06/14/20 04:55 98.7 F 89 20 06/14/20 01:12 99.4 F 93 H 20 06/14/20 00:26 16 06/13/20 20:30 98.4 F 90 20 06/13/20 15:52 98.7 F 81 18 BP BP BP BP Pulse Ox Pulse Ox Pulse Ox 06/14/20 14:00 115/72 100 06/14/20 13:19 128/70 97 06/14/20 13:08 114/62 98 06/14/20 13:03 110/67 97 06/14/20 12:58 121/67 97 06/14/20 12:52 110/66 98 06/14/20 12:48 113/65 97 06/14/20 12:42 126/67 100 06/14/20 12:34 119/65 99 06/14/20 12:27 113/59 98 06/14/20 12:23 115/63 96 06/14/20 12:18 118/70 100 06/14/20 12:12 116/69 99 06/14/20 12:01 122/73 100 06/14/20 07:36 117/69 100 06/14/20 04:55 98/63 100 06/14/20 01:12 116/72 100 06/14/20 00:26 06/13/20 20:30 108/73 100 06/13/20 15:52 118/75 88 Intake and Output 06/13/20 06/14/20 06/14/20 22:59 06:59 14:59 Intake Total 340 0 Balance 340 0 Intake: IV 100 FLAGYL 500 MG/100 ML 500 100 mg In 100 ml @ 100 mls/hr IV Q8H [facility] Rx#:[id number] Oral 240 0 Other: Total, Intake Amount 240 0 Voiding Method Toilet # Voids Void 1 1 1 - Exam Abdomen: Present: normal appearance, soft, other (drain in place with purlent fluid seen in the tubing). Absent: distention, tenderness, guarding Extremities: Present: normal. Absent: tenderness, edema Incision: Present: normal, dry, intact
--- NOTE | 2020-06-14 15:01 | Post Operative Note ---
Date of procedure: 06/14/20 Pre-op diagnosis: TOA Post-op diagnosis: same Findings: Very stiff pelvic collection that deflected to drains but the third drain was successfully placed. Procedure: 1. CT guided placement of an 8 Fr drain in the pelvic TOA/fluid collection Anesthesia: local (w/ conscious sedation) Surgeon: SORAIDA HOLLEY Estimated blood loss: minimal Specimen disposition: to lab Condition: stable Disposition: floor
--- NOTE | 2020-06-14 16:12 | Cat Scan Report ---
EXAM: CT guided tuboovarian abscess 8 Fr drain placement CLINICAL INDICATION: Tubo-ovarian abscess DATE: 06/14/2020 MISDRAW HAND: SORAIDA HOLLEY MD MEDICATIONS: Conscious sedation using Versed and fentanyl was performed under guidance of radiologic nursing. Continuous cardiopulmonary monitoring was utilized. PROCEDURE: Following an explanation of the risks, benefits and alternatives; written informed consent was obtained. The patient was brought to the CT suite and placed in the supine position on the CT table. Map Drafter CT was performed of the pelvis. After determining the appropriate site, the skin was infiltrated with lidocaine and a finder needle was placed. Intermittent CT was performed until the desired position was identified. The 18 gauge trocar needle was inserted into the tubo-ovarian complex . Aspiration was performed and sent to the lab for analysis. J wire was then advanced through the needle and into the collection. The needle was exchanged for multiple dilators that were used to serially dilate over the wire. An 8 Fr APD drain was advanced over the wire and metal stiffener. After this was performed, CT scan demonstrated that the drain appears to have been deflected off of the tubo-ovarian complex and pushed into the surrounding retroperitoneal space. The drain was then cut and removed. The complex was accessed again with an 18-gauge trocar needle which was inserted into the tubo-ovarian complex at a different angle, and J-wire was advanced through the needle into the collection. Multiple dilators were used to serially dilated over the wire and an 8 [place] drain was advanced over the guidewire and metal stiffener, but again, the drain appears to have been deflected off of the tubo-ovarian complex and pushed into the surrounding fatty soft tissues. The drain was cut and removed. I then decided to attempt this one more time with a different drain, an 8 [place] urosil drain instead of an 8 Fr skater drain. Map Drafter CT was performed of the pelvis. After determining the appropriate site, the skin was infiltrated with lidocaine and a finder needle was placed. Intermittent CT was performed until the desired position was identified. The 18 gauge trocar needle was inserted into the tubo-ovarian complex . Aspiration was performed and sent to the lab for analysis. J wire was then advanced through the needle and into the collection. The needle was exchanged for multiple dilators that were used to serially dilate over the wire. A 8 Fr APD drain was advanced over the wire and metal stiffener which was inserted deep into the collection prior to advancing the drain. Final CT scanning was performed. This demonstrated that the drain was in appropriate position within the collection. The pigtail was secured and aspirated until no more material could be aspirated. There is a large amount of purulent material aspirated (approximately 40 cc). Sterile bandage was applied. Site was secured with silk suture. The patient tolerated the procedure well. There were no immediate postprocedural complications. FINDINGS: 1. Initial CT demonstrates tubo-ovarian complex in the pelvis. There is a satisfactory window for CT drainage. 2. Intermittent CT demonstrates the 18 gauge needle was placed multiple times into the tubo-ovarian complex with wires coiled in the tubo-ovarian complex. 3. Despite wires and tubo-ovarian complex, the first of 2 drains appear to be malpositioned and had to be removed. A final drain was in appropriate position. 4. Final CT documents placement of a 8 Fr drain in the tubo-ovarian fluid collection. 5. A total of 40 mL's of purulent material was aspirated through the drain and initial needle. IMPRESSION: Successful CT guided 8 [place] drain placement in a tubo-ovarian fluid collection/abscess.
[2020-06-14] MEDS: KETOROLAC 30 MG/1 ML INJ IV PRN (20:47)
[2020-06-15] MEDS: diphenhydrAMINE 25 MG CAP PO PRN ×2 (00:56→23:15)
[2020-06-15] MEDS: metroNIDAZOLE/NS 500 MG/100 ML 500 MG/100 ML BAG IV SCH ×3 (03:24→18:36)
[2020-06-15] MEDS: KETOROLAC 30 MG/1 ML INJ IV PRN ×3 (03:39→18:34)
[2020-06-15] MEDS ORDERED: ACETAMINOPHEN 325 MG TAB PO PRN (07:10)
--- NOTE | 2020-06-15 09:01 | Progress Note ---
Assessment and Plan Low grade fever noted yesterday after drain placed. Patient otherwise doing well. Still declines surgical intervention. Now on Day #4 of antibiotic regimen (Rocephin daily, Flagyl IV q8hr, Doxycycline 100mg q12h). As discussed with Dr. Alvarez will continue hospitalization at least until surgical culture results available to ensure appropriate antibiotic regimen, 24hours afebrile and able to tolerate po. Plan of care discussed with the patient who voiced understanding and agrees with course of care. - Patient Problems (1) Acute pelvic inflammatory disease (PID) Current Visit: Yes Status: Acute (2) Pelvic mass Current Visit: Yes Status: Acute (3) Diverticulosis Current Visit: Yes Status: Chronic (4) Acute bilateral lower abdominal pain Current Visit: Yes Status: Acute (5) Acute urinary tract infection Current Visit: Yes Status: Acute (6) Fever and chills Current Visit: Yes Status: Acute (7) Nausea and vomiting in adult Current Visit: Yes Status: Acute (8) Smoker Current Visit: Yes Status: Chronic Subjective - Subjective Date of service: 06/15/20 Principal diagnosis: POD#1 s/p CT drainage of TOAs with drain left insitu Interval history: This is a 35-year-old female 1 para 1 who presented with a one-week history of pelvic pain that started on June 07, 2020. Patient states pain was somewhat relieved with Gas-X and an enema however she developed nausea and vomiting yesterday with weakness and fatigue and anorexia. LMP 05/22/2020 however she states she then bled again 06/07/2020 that coincided with the beginning of her pain. She states she had sex approximately 2 weeks ago. Patient gives a history of positive chlamydia in February 2020 for she and her partner were treated. She did not get a test of cure. ED evaluation revealed bilateral adnexal complex cystic structures possibly consistent with tubo- ovarian abscesses. Patient has white count 21,000 a low-grade fever of 100.1 and slight tachycardia she is admitted now for IV antibiotics and an evaluation by interventional radiology with for possible drainage Patient reports: appetite normal, voiding normally, pain well controlled, bowel movement Objective - Vital Signs Latest vital signs: Vital Signs Temp Pulse Pulse Pulse Resp Resp Resp 06/15/20 07:23 99.7 F H 94 H 20 06/14/20 20:34 100.0 F H 113 H 18 06/14/20 15:38 99.7 F H 104 H 20 06/14/20 14:00 99.3 F 98 H 20 06/14/20 13:19 98 H 25 H 06/14/20 13:08 99 H 27 H 06/14/20 13:03 104 H 22 06/14/20 12:58 113 H 20 06/14/20 12:52 108 H 28 H 06/14/20 12:48 101 H 24 06/14/20 12:42 120 H 18 06/14/20 12:34 117 H 16 06/14/20 12:27 101 H 24 06/14/20 12:23 107 H 24 06/14/20 12:18 114 H 18 06/14/20 12:12 97 H 28 H 06/14/20 12:01 87 20 BP BP BP BP Pulse Ox Pulse Ox Pulse Ox 06/15/20 07:23 128/75 100 06/14/20 20:34 129/85 100 06/14/20 15:38 107/77 85 06/14/20 14:00 115/72 100 06/14/20 13:19 128/70 97 06/14/20 13:08 114/62 98 06/14/20 13:03 110/67 97 06/14/20 12:58 121/67 97 06/14/20 12:52 110/66 98 06/14/20 12:48 113/65 97 06/14/20 12:42 126/67 100 06/14/20 12:34 119/65 99 06/14/20 12:27 113/59 98 06/14/20 12:23 115/63 96 06/14/20 12:18 118/70 100 06/14/20 12:12 116/69 99 06/14/20 12:01 122/73 100 Intake and Output 06/14/20 06/15/20 06/15/20 22:59 06:59 14:59 Intake Total 520 Output Total 300 10 Balance 220 -10 Intake: IV 100 FLAGYL 500 MG/100 ML 500 100 mg In 100 ml @ 100 mls/hr IV Q8H [facility] Rx#:[id number] Oral 120 Intake, Free Water 300 Output: Drainage 10 Abdomen 10 Urine 300 Void 300 Other: Total, Intake Amount 120 Total, Output Amount 300 10 # Voids Void 1 - Exam Breasts: Present: deferred Abdomen: Present: normal appearance, soft, other (drain intact, minimal serous drainage in tube, unchanged from yesterday according to the patient) Extremities: Present: normal. Absent: tenderness, edema
[2020-06-15] MEDS: DOXYCYCLINE HYCLATE 100 MG in SODIUM CHLORIDE 0.9% 250ML 250 ML IV SCH ×2 (11:40→23:15)
--- NOTE | 2020-06-15 12:07 | Progress Note ---
Assessment and Plan 35-year-old female with tubo-ovarian collection and leukocytosis compatible with tubo-ovarian abscess status post drain placement, POD 1. Improved abdominal pain. No rigidity. No peritonitis. Ordered white blood cell count. Microbial analysis demonstrates no growth to date at this time. Patient may ultimately require empiric antibiotics if culture data is negative. Discussed with patient that this could require 2 to 4 days for full culture analysis. Drain output minimal, may have already drained as much as possible. Can cons ider reimaging if patient does not clinically improve or if white blood cell count does not improve. Dr. Caceres will see the patient on . Subjective Date of service: 06/15/20 Principal diagnosis: POD#1 s/p CT drainage of TOAs with drain left insitu Interval history: Patient feeling better with improved abdominal pain, but still has abdominal pain with deeper palpation. No peritonitis. No rigidity. Minimal output from drain. Objective - Constitutional Vitals: Vital Signs - 12hr 06/15/20 07:23 Temperature 99.7 F H Pulse Rate 94 H Respiratory 20 Rate Blood Pressure 128/75 O2 Sat by Pulse 100 Oximetry General appearance: Present: no acute distress - EENT Eyes: EOM intact ENT: hearing intact - Respiratory Respiratory effort: normal Extremities: normal temperature, normal color - Gastrointestinal General gastrointestinal: Present: tender (with deep palpation) - Psychiatric Psychiatric: appropriate mood/affect, cooperative - Labs CBC & Chem 7: 06/12/20 14:14 06/12/20 17:40 Medications & Allergies - Medications Allergies/Adverse Reactions: Allergies No Known Allergies Allergy (Verified 06/14/19 03:14) Home Medications: Home Medications Medication Instructions Recorded Confirmed Last Taken Type Acetaminophen/Codeine [Tylenol 1 tab PO Q6H PRN #12 tab 06/14/19 Unknown Rx /Codeine # 3 tab] Ibuprofen [Motrin] 800 mg PO Q8HR PRN #20 tablet 06/14/19 Unknown Rx cephALEXin [Keflex] 500 mg PO Q8HR #30 cap 06/14/19 Unknown Rx Active Medications: Generic Name Dose Route Start Last Admin Trade Name Freq PRN Reason Stop Dose Admin Acetaminophen 650 mg 06/15/20 07:10 Tylenol PO Q6H PRN Non Cardiac Pain or Temp>100.5 Acetaminophen/Codeine Phosphate 2 tab 06/13/20 14:18 06/14/20 15:43 Tylenol #3 PO 2 tab Q6H PRN Administration Pain, Moderate (4-6) Al Hydrox/Mg Hydrox/Simethicone 30 ml 06/12/20 22:00 06/13/20 20:24 Alum-Mag Hydrox-Simeth 542-503-66mi/5ml PO 30 ml Q4H PRN Administration Indigestion Diphenhydramine HCl 25 mg 06/15/20 00:17 06/15/20 00:56 Benadryl PO 25 mg Q6H PRN Administration Insomnia Lactated Ringer's 1,000 mls @ 42 mls/hr 06/12/20 07:00 06/13/20 17:40 Lactated Ringers IV 42 mls/hr DIRECT DUONG Administration Ceftriaxone Sodium 2 gm in 100 mls @ 200 mls/hr 06/12/20 11:00 06/14/20 14:20 Rocephin/Ns 2 Gm/100 Ml IV 200 mls/hr Q24HR DUONG Administration Protocol Doxycycline Hyclate 100 mg/ 250 mls @ 250 mls/hr 06/12/20 11:00 06/14/20 23:10 Sodium Chloride IV 250 mls/hr Q12H DUONG Administration Protocol Metronidazole 500 mg in 100 mls @ 100 mls/hr 06/12/20 11:00 06/15/20 10:21 Flagyl 500 Mg/100 Ml IV 100 mls/hr Q8H DUONG Administration Protocol Ketorolac Tromethamine 30 mg 06/12/20 13:47 06/15/20 10:17 Toradol IV 06/17/20 13:46 30 mg Q6H PRN Administration Pain, Moderate (4-6)
[2020-06-15 13:21] LABS: Hematocrit 29.8 % (30.3-42.9); Hemoglobin 9.7 gm/dl (10.1-14.3); Mean Corpuscular HGB Conc 32 % (30-34); Mean Corpuscular Volume 88 fl (79-97); Platelet Count 421 K/mm3 (140-440); Red Blood Count 3.38 M/mm3 (3.65-5.03); Red Cell Distribution Width 14.5 % (13.2-15.2)
[2020-06-15 13:59] LABS: Eosinophils % (Manual) 0 % (0.0-4.3); Total Cells Counted 100
[2020-06-15 14:01] LABS: Platelet Estimate Consistent w Auto; RBC Morphology Normal
[2020-06-15] MEDS: cefTRIAXone/NS 2 GM/100 ML 2 GM/100 ML BAG IV SCH (14:30)
[2020-06-15] MEDS: ACETAMINOPHEN W/CODEINE 300-30 MG TAB PO PRN (23:14)
[2020-06-16] MEDS: LACTATED RINGERS 1,000 ML IV SCH (02:23)
[2020-06-16] MEDS: metroNIDAZOLE/NS 500 MG/100 ML 500 MG/100 ML BAG IV SCH ×3 (02:23→18:05)
[2020-06-16] MEDS: KETOROLAC 30 MG/1 ML INJ IV PRN ×3 (02:32→22:40)
[2020-06-16 06:34] LABS: Basophils % (Auto) 0.2 % (0.0-1.8); Eosinophils # (Auto) 0.1 K/mm3 (0.0-0.4); Eosinophils % (Auto) 0.7 % (0.0-4.3); Hematocrit 27.2 % (30.3-42.9); Hemoglobin 9.1 gm/dl (10.1-14.3); Lymphocytes # (Auto) 2.2 K/mm3 (1.2-5.4); Lymphocytes % (Auto) 12.6 % (13.4-35.0); Mean Corpuscular HGB Conc 34 % (30-34); Mean Corpuscular Volume 89 fl (79-97); Monocytes # (Auto) 1.4 K/mm3 (0.0-0.8); Monocytes % (Auto) 8.2 % (0.0-7.3); Platelet Count 407 K/mm3 (140-440); Red Blood Count 3.07 M/mm3 (3.65-5.03)
--- NOTE | 2020-06-16 10:34 | Progress Note ---
Assessment and Plan - Patient Problems (1) Acute pelvic inflammatory disease (PID) Current Visit: Yes Status: Acute (2) Tubo-ovarian abscess Current Visit: Yes Status: Acute Plan to address problem: -cont antibx -s/p successful drainage with drain placement. please see Dr. Alvarez's noted for details -d/c home when cleared by IR . Recommendation was to remain in house at least until cx are back. Subjective Date of service: 06/16/20 Principal diagnosis: POD#2 s/p CT drainage of TOAs with drain left insitu Interval history: Pt c/o having some cramping pain but otherwise states she is feeling much better today and pt was very pleasant towards provider this am. I d/w that we are waiting for plans for IR in terms of discharge and follow up. She inquired about having to have repeat CT scan.I advised that that would be at the recommendations for Dr. Alvarez and Dr. Caceres. She expressed understanding. I d/w that the preliminary results for the surgical path were pending and provider was not able to pull up on the sever this am and that her wbc did improve to 17. I inquired if there is anything provider could do for her at this time and she state no and agrees with plan of care. Objective - Constitutional Vitals: Vital Signs - 12hr 06/16/20 06/16/20 06/16/20 00:44 05:04 07:16 Temperature 99.6 F 98.3 F 98.4 F Pulse Rate 72 83 Respiratory 20 20 18 Rate Blood Pressure 112/66 101/65 Blood Pressure 122/69 [Left] O2 Sat by Pulse 100 99 Oximetry - Gastrointestinal General gastrointestinal: Present: soft, non-tender, non-distended, normal bowel sounds, other (drain in place now with brownish fluid compared to the purlent looking fluid seen on POD #0 when pt last seen by this provider.) - Integumentary Integumentary: clear, dry - Musculoskeletal Musculoskeletal: strength equal bilaterally - Psychiatric Psychiatric: appropriate mood/affect - Labs CBC & Chem 7: 06/16/20 05:46 06/12/20 17:40 Labs: Abnormal lab results 06/15/20 06/16/20 Range/Units 13:12 05:46 WBC 21.0 H 17.5 H (4.5-11.0) K/mm3 RBC 3.38 L 3.07 L (3.65-5.03) M/mm3 Hgb 9.7 L 9.1 L (10.1-14.3) gm/dl Hct 29.8 L 27.2 L (30.3-42.9) % Lymph % (Auto) 12.6 L (13.4-35.0) % [place] % (Auto) 8.2 H (0.0-7.3) % [place] # (Auto) 1.4 H (0.0-0.8) K/mm3 Seg Neutrophils % 78.3 H (40.0-70.0) % Seg Neuts % (Manual) 84.0 H (40.0-70.0) % Lymphocytes % (Manual) 8.0 L (13.4-35.0) % Seg Neutrophils # 13.7 H (1.8-7.7) K/mm3 Seg Neutrophils # Man 17.6 H (1.8-7.7) K/mm3 Monocytes # (Manual) 1.3 H (0.0-0.8) K/mm3 Basophils # (Manual) 0.2 H (0.0-0.1) K/mm3 Medications & Allergies - Medications Allergies/Adverse Reactions: Allergies No Known Allergies Allergy (Verified 06/14/19 03:14) Home Medications: Home Medications Medication Instructions Recorded Confirmed Last Taken Type Acetaminophen/Codeine [Tylenol 1 tab PO Q6H PRN #12 tab 06/14/19 06/15/20 Unknown Rx /Codeine # 3 tab] Ibuprofen [Motrin] 800 mg PO Q8HR PRN #20 tablet 06/14/19 06/15/20 Unknown Rx cephALEXin [Keflex] 500 mg PO Q8HR #30 cap 06/14/19 06/15/20 Unknown Rx Active Medications: Generic Name Dose Route Start Last Admin Trade Name Freq PRN Reason Stop Dose Admin Acetaminophen 650 mg 06/15/20 07:10 Tylenol PO Q6H PRN Non Cardiac Pain or Temp>100.5 Acetaminophen/Codeine Phosphate 2 tab 06/13/20 14:18 06/15/20 23:14 Tylenol #3 PO 2 tab Q6H PRN Administration Pain, Moderate (4-6) Al Hydrox/Mg Hydrox/Simethicone 30 ml 06/12/20 22:00 06/13/20 20:24 Alum-Mag Hydrox-Simeth 320-679-52ok/5ml PO 30 ml Q4H PRN Administration Indigestion Diphenhydramine HCl 25 mg 06/15/20 00:17 06/15/20 23:15 Benadryl PO 25 mg Q6H PRN Administration Insomnia Lactated Ringer's 1,000 mls @ 42 mls/hr 06/12/20 07:00 06/16/20 02:23 Lactated Ringers IV 42 mls/hr DIRECT DUONG Administration Ceftriaxone Sodium 2 gm in 100 mls @ 200 mls/hr 06/12/20 11:00 06/15/20 14:30 Rocephin/Ns 2 Gm/100 Ml IV 200 mls/hr Q24HR DUONG Administration Protocol Doxycycline Hyclate 100 mg/ 250 mls @ 250 mls/hr 06/12/20 11:00 06/15/20 23:15 Sodium Chloride IV 250 mls/hr Q12H DUONG Administration Protocol Metronidazole 500 mg in 100 mls @ 100 mls/hr 06/12/20 11:00 06/16/20 02:23 Flagyl 500 Mg/100 Ml IV 100 mls/hr Q8H DUONG Administration Protocol Ketorolac Tromethamine 30 mg 06/12/20 13:47 06/16/20 08:16 Toradol IV 06/17/20 13:46 30 mg Q6H PRN Administration Pain, Moderate (4-6)
[2020-06-16] MEDS: DOXYCYCLINE HYCLATE 100 MG in SODIUM CHLORIDE 0.9% 250ML 250 ML IV SCH ×2 (11:00→22:56)
[2020-06-16] MEDS: cefTRIAXone/NS 2 GM/100 ML 2 GM/100 ML BAG IV SCH (15:35)
[2020-06-16] MEDS: ACETAMINOPHEN W/CODEINE 300-30 MG TAB PO PRN (19:22)
[2020-06-16] MEDS: diphenhydrAMINE 25 MG CAP PO PRN (22:55)
[2020-06-17] MEDS: metroNIDAZOLE/NS 500 MG/100 ML 500 MG/100 ML BAG IV SCH (01:48)
[2020-06-17 06:10] LABS: Basophils % (Auto) 0.2 % (0.0-1.8); Eosinophils # (Auto) 0.1 K/mm3 (0.0-0.4); Eosinophils % (Auto) 0.8 % (0.0-4.3); Lymphocytes # (Auto) 2.2 K/mm3 (1.2-5.4); Lymphocytes % (Auto) 15.4 % (13.4-35.0); Monocytes # (Auto) 1.1 K/mm3 (0.0-0.8); Monocytes % (Auto) 7.6 % (0.0-7.3)
[2020-06-17 06:20] LABS: Mean Corpuscular HGB Conc 34 % (30-34); Mean Corpuscular Volume 88 fl (79-97); Platelet Count 446 K/mm3 (140-440); Red Blood Count 3.07 M/mm3 (3.65-5.03); Red Cell Distribution Width 14.4 % (13.2-15.2)
--- NOTE | 2020-06-17 08:06 | Progress Note ---
Assessment and Plan Will d/c IV antibiotics and start PO ? d/c drain today ? allow home tomorrow - Patient Problems (1) Acute pelvic inflammatory disease (PID) Current Visit: Yes Status: Acute (2) Pelvic mass Current Visit: Yes Status: Acute (3) Diverticulosis Current Visit: Yes Status: Chronic (4) Acute bilateral lower abdominal pain Current Visit: Yes Status: Acute (5) Acute urinary tract infection Current Visit: Yes Status: Acute (6) Fever and chills Current Visit: Yes Status: Acute (7) Nausea and vomiting in adult Current Visit: Yes Status: Acute (8) Smoker Current Visit: Yes Status: Chronic Subjective Date of service: 06/17/20 Principal diagnosis: POD#3 s/p CT drainage of TOAs with drain left insitu Interval history: Resting in bed, doing well tolerating po. Objective - Constitutional Vitals: Vital Signs - 12hr 06/16/20 06/17/20 06/17/20 22:40 00:24 06:07 Temperature 98.2 F 98.2 F Pulse Rate 83 77 Respiratory 20 20 20 Rate Blood Pressure 104/70 126/77 O2 Sat by Pulse 100 100 Oximetry General appearance: Present: no acute distress - Neck Neck: supple - Respiratory Respiratory effort: normal - Breasts Breasts: deferred Extremities: no ischemia, No edema - Gastrointestinal General gastrointestinal: Present: soft, non-tender, non-distended - Psychiatric Psychiatric: appropriate mood/affect, intact judgment & insight, agitated (sta grover she cannot sleep here) - Labs CBC & Chem 7: 06/17/20 05:40 06/12/20 17:40 Labs: Abnormal lab results 06/17/20 Range/Units 05:40 WBC 14.6 H (4.5-11.0) K/mm3 RBC 3.07 L (3.65-5.03) M/mm3 Hgb 9.0 L (10.1-14.3) gm/dl Hct 27.0 L (30.3-42.9) % Plt Count 446 H (140-440) K/mm3 [place] % (Auto) 7.6 H (0.0-7.3) % [place] # (Auto) 1.1 H (0.0-0.8) K/mm3 Seg Neutrophils % 76.0 H (40.0-70.0) % Seg Neutrophils # 11.1 H (1.8-7.7) K/mm3 Medications & Allergies - Medications Allergies/Adverse Reactions: Allergies No Known Allergies Allergy (Verified 06/14/19 03:14) Home Medications: Home Medications Medication Instructions Recorded Confirmed Last Taken Type Acetaminophen/Codeine [Tylenol 1 tab PO Q6H PRN #12 tab 06/14/19 06/15/20 Unknown Rx /Codeine # 3 tab] Ibuprofen [Motrin] 800 mg PO Q8HR PRN #20 tablet 06/14/19 06/15/20 Unknown Rx cephALEXin [Keflex] 500 mg PO Q8HR #30 cap 06/14/19 06/15/20 Unknown Rx Active Medications: Generic Name Dose Route Start Last Admin Trade Name Freq PRN Reason Stop Dose Admin Acetaminophen 650 mg 06/15/20 07:10 Tylenol PO Q6H PRN Non Cardiac Pain or Temp>100.5 Acetaminophen/Codeine Phosphate 2 tab 06/13/20 14:18 06/16/20 19:22 Tylenol #3 PO 2 tab Q6H PRN Administration Pain, Moderate (4-6) Al Hydrox/Mg Hydrox/Simethicone 30 ml 06/12/20 22:00 06/13/20 20:24 Alum-Mag Hydrox-Simeth 330-868-96ri/5ml PO 30 ml Q4H PRN Administration Indigestion Diphenhydramine HCl 25 mg 06/15/20 00:17 06/16/20 22:55 Benadryl PO 25 mg Q6H PRN Administration Insomnia Doxycycline Hyclate 100 mg 06/17/20 10:00 Vibramycin PO BID [facility] Lactated Ringer's 1,000 mls @ 42 mls/hr 06/12/20 07:00 06/16/20 02:23 Lactated Ringers IV 42 mls/hr DIRECT DUONG Administration Ketorolac Tromethamine 30 mg 06/12/20 13:47 06/16/20 22:40 Toradol IV 06/17/20 13:46 30 mg Q6H PRN Administration Pain, Moderate (4-6) Metronidazole 500 mg 06/17/20 14:00 Flagyl PO Q8HR [facility] Protocol
[2020-06-17] MEDS: DOXYCYCLINE 100 MG CAP PO SCH ×2 (10:12→21:41)
[2020-06-17] MEDS: KETOROLAC 30 MG/1 ML INJ IV PRN (12:45)
[2020-06-17] MEDS: metroNIDAZOLE 500 MG TAB PO SCH ×2 (16:19→23:59)
--- NOTE | 2020-06-17 21:05 | Event Note ---
Date: 06/17/20 Patient resting in bed, agrees the removal of drain tonight. Tubing detached then drain removed w/o difficulty, no fluid or drainage from site, dressed with 4x4. Tolerating diet and antibiotics po, will consider d/c home tomorrow if stable overnight
[2020-06-17] MEDS: diphenhydrAMINE 25 MG CAP PO PRN (21:40)
[2020-06-17] MEDS: ACETAMINOPHEN W/CODEINE 300-30 MG TAB PO PRN (21:40)
[2020-06-18 07:49] VITALS: BP 113/80
[2020-06-18] MEDS: metroNIDAZOLE 500 MG TAB PO SCH (08:24)
[2020-06-18] MEDS: DOXYCYCLINE 100 MG CAP PO SCH (10:08)
--- NOTE | 2020-06-18 10:16 | Discharge Summary ---
Providers - Providers Date of Admission: 06/12/20 05:22 Date of discharge: 06/18/20 Attending physician: BHARATH KURTZ 06/12/20 10:05 Consult to Physician [CONS] Routine Comment: Consulting Provider: SORAIDA HOLLEY Physician Instructions: Reason For Exam: tubo-ovarian abscess Primary care physician: [facility] Hospitalization Reason for admission: Tubo-ovarian abscess Condition: Stable Pertinent studies: Pelvic ultrasounds abdominal pelvic CT scan Procedures: CT-guided placement of pelvic drain Hospital course: See H&P and chart for details. Patient was admitted with a diagnosis of tubo- ovarian abscesses. Patient was treated with IV antibiotics discussed option of possible block uroscopy versus placement of pelvic drain by interventional radiologist. Patient desires placement of the drain. CT-guided drainage placement was done on June 14. Postoperatively patient did well per interventional radiologist desire to continue in hospital and get IV antibiotics. Patient blood cultures and abscess cultures are were negative. Patient remained afebrile during her post procedure stay with pain decreasing and her white blood count decreasing. Patient was discharged with p.o. antibiotics. Disposition: - TO HOME OR SELFCARE - Discharge Diagnoses (1) Tubo-ovarian abscess Status: Acute Core Measure Documentation - Palliative Care Palliative Care/ Comfort Measures: Not Applicable - Core Measures Any of the following diagnoses?: none Exam - Constitutional Vitals: Temp Pulse Resp BP Pulse Ox 98.4 F 73 17 113/80 95 06/18/20 07:23 06/18/20 07:23 06/18/20 07:23 06/18/20 07:23 06/18/20 07:23 General appearance: Present: no acute distress - Respiratory Respiratory effort: normal - Cardiovascular Rhythm: regular - Extremities Extremities: no ischemia, pulses intact, No edema - Abdominal General gastrointestinal: Present: soft, non-tender Female genitourinary: Present: deferred - Rectal Rectal Exam: deferred - Integumentary Integumentary: Present: clear, warm, dry - Musculoskeletal Musculoskeletal: strength equal bilaterally - Psychiatric Psychiatric: appropriate mood/affect, intact judgment & insight Plan Activity: no restrictions, advance as tolerated Diet: regular Wound: open to air Additional Instructions: Patient is to call for fever, chills, nausea or vom iting. Patient to call for pain not controlled by pain medicine. Patient follow-up in office in 1 week. Information be given by nursing staff. Follow up with: PRIMARY CARE, [Primary Care Provider] - 3-5 Days Prescriptions: metroNIDAZOLE [Flagyl] 500 mg PO Q8HR 14 Days #42 tablet Ibuprofen [Motrin] 800 mg PO TID PRN #30 tablet PRN Reason: Pain Acetaminophen/Codeine [Tylenol #3] 1 tab PO Q6HR PRN #10 tablet PRN Reason: Pain DOXYCYCLINE Hyclate [Vibramycin CAP] 100 mg PO Q12HR #28 capsule
== END 2020-06-18 11:15 | disposition home or self-care (01) | DRG 982 ==
LOC: ED 14:20 → OB 06-12 05:22
PROVIDERS: ADMIT Obstetrics & Gynecology; ATTEND Obstetrics & Gynecology
PROC: 0W9J00Z Drainage of Pelvic Cavity with Drainage Device, Open Approach (ICD-10-PCS; principal; 2020-06-14)
DX: N70.03 Acute salpingitis and oophoritis (principal); N39.0 Urinary tract infection, site not specified; F17.200 Nicotine dependence, unspecified, uncomplicated
CPT/HCPCS: 10160; 36415; 74177; 76817; 76830; 76856; 77012; 80048; 80053; 81001; 82140; 84703; 85007; 85025; 86850; 86900; 86901; 87040; 87086; 87116; 87210; 87591; G0378; C1769; J0696; J1885; J2250; J2270; J2405; J3010; J7030; J7050; J7120; Q9967; U0003-CS